=== PATIENT | female | born 1995 ===

== ENCOUNTER 2022-08-26 03:05 | Inpatient (IN) ==
[2022-08-26] MEDS ORDERED: LACTATED RINGER'S 1,000 ML IV PRN (03:23)
[2022-08-26] MEDS ORDERED: OXYTOCIN 30 UNITS/500 ML BAG IV PRN (03:23)
[2022-08-26] MEDS ORDERED: BENZOCAINE 20% AER SPR 82.5 GM CAN EXT PRN (03:26)
[2022-08-26] MEDS ORDERED: bisacodyL 10 MG SUPP PR PRN (03:26)
[2022-08-26] MEDS ORDERED: OXYTOCIN 10 UNITS/ML 10ML VIAL IM ONE (03:29)
--- NOTE | 2022-08-26 03:36 | History & Physical Report ---
Date of Service August 26, 2022 Assessment & Plan (1) H/O: section: Plan: post IM Pitocin given (2) Precipitous delivery, delivered (current hospitalization): Admission and Anticipated Discharge Date Admission Date: August 26, 2022 History of Present Illness Chief Complaint: Precipitous delivery in car Primary Care Provider: KATIA PCP 27 F P1001 at 41.3 weeks admitted to L&D after having preciptous vaginal delivery in car on her way to the hospital. She was a prior and was on her way here and her water broke. 0210 and delivered live female at 0233 by car clock. Allergies Allergy/AdvReac Type Severity Reaction Status Date / Time No Known Allergies Allergy Unverified 07/05/22 20:09 Home Medications Medication Instructions Recorded Confirmed Type prenat.vits,jacinda,[id number] 1 tab PO DAILY 07/05/22 08/20/22 History Patient History Medical History Failure to progress in second stage of labor IUGR (intrauterine growth restriction) Surgical History H/O: section 4-4-21 Family History Other No history of previous surgery No known health problems Social History Smoking Status: Unknown if ever smoked Second Hand Exposure: No; Hx Alcohol Use: No Hx Substance Use: No Preferred Language: Telugu Communication Ability: Effective Hose Builder Required: No Beliefs That Will Affect Care: None marital status: Current Living Situation: Spouse Feels Safe at Home: Yes Assistive Devices: None 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 Bowman and no tears or bleeding noted. Code Status & VTE Plan VTE Prophylaxis Plan VTE Prophylaxis will be ordered: No
[2022-08-26] MEDS: IBUPROFEN 600 MG TAB PO PRN ×5 (04:35→21:30)
[2022-08-26] MEDS: ACETAMINOPHEN 325 MG TAB PO PRN (12:08)
[2022-08-27] MEDS: IBUPROFEN 600 MG TAB PO PRN ×2 (05:28→09:33)
[2022-08-27 07:35] LABS: Hematocrit (blood only) 36.2 % (37.0-47.0); Hemoglobin 12.8 g/dl (12.0-16.0); Mean Corpuscular Hemoglobin 31.1 pg (25.0-34.0); Mean Corpuscular Hgb Conc 35.4 g/dL (32.0-36.0); Mean Corpuscular Volume 87.9 fL (80.0-100.0); Mean Platelet Volume 10.3 fL (9.4-12.4); Platelet Count 187 K/uL (130-400); RDW Coefficient of Variation 13.2 % (11.5-14.5); RDW Standard Deviation 42.2 fL (36.4-46.3); Red Blood Count 4.12 M/uL (4.20-5.40); White Blood Count 10.82 K/ul (4.8-10.8)
[2022-08-27] MEDS: ACETAMINOPHEN 325 MG TAB PO PRN (07:39)
--- NOTE | 2022-08-27 09:28 | Obstetrical Progress Note ---
Date of Service August 27, 2022 Assessment & Plan Admission and Anticipated Discharge Date Admission Date: August 26, 2022 Subjective Patient is seen and examined. She feels well, no complaints. Ambulating without dizziness Voiding without difficulty Tolerating regular diet with out N&V Bleeding is minimal No fever/ chills/ CP/ SOB/ N&V/ Leg pain Breast feeding without problems Lab Results 08/26/22 08/27/22 Range/Units 04:10 07:19 WBC 10.82 H (4.8-10.8) K/ul RBC 4.12 L (4.20-5.40) M/uL Hgb 12.8 (12.0-16.0) g/dl Hct 36.2 L (37.0-47.0) % MCV 87.9 (80.0-100.0) fL MCH 31.1 (25.0-34.0) pg MCHC 35.4 (32.0-36.0) g/dL RDW Std Deviation 42.2 (36.4-46.3) fL RDW Coeff of Lamin 13.2 (11.5-14.5) % Plt Count 187 (130-400) K/uL MPV 10.3 (9.4-12.4) fL SARS-CoV-2, RNA, NAAT NEGATIVE (NEGATIVE) Vital Signs Temp Pulse Pulse Pulse Resp BP BP 08/27/22 08:00 36.6 C 83 16 103/68 08/27/22 00:16 36.5 C 87 16 112/64 08/26/22 19:14 36.8 C 85 16 99/64 L 08/26/22 15:40 36.9 C 76 18 95/62 L 08/26/22 12:24 36.5 C 84 18 105/68 08/26/22 10:16 36.7 C 78 18 107/67 O2 Del Method 08/27/22 08:00 Room Air 08/27/22 00:16 Room Air 08/26/22 19:14 Room Air 08/26/22 15:40 Room Air 08/26/22 12:24 08/26/22 10:16 PE: General: Alert, orientedx3, NAD Abd: soft, NT, fundus firm, below Umbilicus Perineum intact, Lochia rubra minimal Ext; NT, no edema AP: 27 yo s/p / Pericipitou , ppd#1 VSS Afebrile doing well Continue routine care All questions were answered Desires d/c now D/C home , f/u in office Results & Data Vital Signs (Past 12 Hours) Vital Signs Temp Pulse Resp BP O2 Del Method 08/27/22 08:00 36.6 C 83 16 103/68 Room Air 08/27/22 00:16 36.5 C 87 16 112/64 Room Air
[2022-08-27] MEDS ORDERED: bisacodyL 5 MG TABEC PO SCH (20:00)
== END 2022-08-27 10:30 | disposition home or self-care (01) | DRG 776 ==
LOC: 4S1 03:05 → 4E2 06:27